=== PATIENT | male | born 1935 | race African-American/Black ===

== ENCOUNTER 2020-09-08 16:53 | Inpatient (IN) | payer MEDICARE, OTHER ==
[~2020-09-08] VITALS: Ht 167.6 cm; Wt 72.6 kg
[2020-09-08] MEDS ORDERED: IV NORMAL SALINE 1000 ML BAG IV ONE (17:30)
[2020-09-08 17:52] LABS: MEAN CORPUSCULAR HEMOGLOBIN 26.2 uug (23.8-33.4); MEAN CORPUSCULAR VOLUME 80.9 fL (73.0-96.2); PLATELET COUNT (AUTO) 173 K/uL (152-348)
[2020-09-08 17:53] LABS: CARBON DIOXIDE 28 mmol/L (21-32); CHLORIDE 104 mmol/L (98-107); CREATININE 1.5 mg/dL (0.6-1.3); GLUCOSE 105 mg/dL (74-106); UREA NITROGEN, BLOOD 15 mg/dL (7-18)
[2020-09-08 17:54] LABS: ETHANOL < 3 MG/DL (0-0)
[2020-09-08 17:59] LABS: ALANINE AMINOTRANSFERASE 18 U/L (16-63); ALKALINE PHOSPHATASE 64 U/L (50-136); ASPARTATE AMINOTRANSFERASE 13 U/L (15-37); BILIRUBIN,DIRECT 0.1 mg/dL (0.0-0.2); BILIRUBIN,TOTAL 0.8 mg/dL (0.2-1.0); TOTAL PROTEIN, SERUM 7.1 g/dL (6.4-8.2)
--- NOTE | 2020-09-08 18:08 | NUR ---
PT IS IN ROOM #1A. DR MARSH EVALUATED THE PT.
[2020-09-08 18:14] LABS: CREATINE KINASE, TOTAL 95 U/L (39-308); PHOSPHOROUS 2.4 mg/dL (2.5-4.9)
[2020-09-08] MEDS ORDERED: LORAZEPAM 2 MG/1 ML VIAL IV ONE (18:15)
[2020-09-08] MEDS ORDERED: LORAZEPAM 2 MG/1 ML VIAL ONE (18:17)
[2020-09-08 18:23] LABS: THYROID STIMULATING HORMONE 1.403 mIU/mL (0.358-3.740)
--- NOTE | 2020-09-08 18:38 | NUR ---
PT STILL UNABLE TO REMEMBER BLOOD PRESSURE MEDICATION HE TAKES.
--- NOTE | 2020-09-08 19:01 | NUR ---
REPORT WAS GIVEN TO [facility] OPERATOR RN.
--- NOTE | 2020-09-08 19:10 | NUR ---
Assumed care for patient at this time. Pt returned from CT scan, in stable condition. Noted with generalized weakness, but verbally responsive and able to express needs. Not in any acute distress. VS taken as recorded. NSR on tele @ 66. Patient is a pending admission, COVID swab done now.
[2020-09-08] MEDS ORDERED: MAGNESIUM HYDROXIDE 30 ML LIQUID UDC PO PRN (19:15)
[2020-09-08] MEDS ORDERED: ACETAMINOPHEN 325 MG TABLET PO PRN (19:15)
[2020-09-08] MEDS ORDERED: IV NS 1000 ML 1,000 ML IV PRN (19:15)
[2020-09-08] MEDS ORDERED: ONDANSETRON 4 MG/2 ML VIAL IV PRN (19:15)
--- NOTE | 2020-09-08 20:28 | NUR ---
Patient is COVID (-). First call to give report.
--- NOTE | 2020-09-08 20:45 | NUR ---
Report given to Deric ORTEGA. Pending rollover paperwork, will bring patient up when admission paperwork ready.
--- NOTE | 2020-09-08 21:20 | NUR ---
Pt requested to go to the bathroom at this time. Pt noted to have unsteady gait when ambulating, RN assisted patient with transfers. Had 1 BM episode prior to leaving ER, with functional incontinence noted. Applied patient gown and removed soiled clothing and placed in belongings bag. Patient then, transported to Room 305 via wheelchair. Warm handoff to Deric ORTEGA.
[2020-09-08] MEDS ORDERED: ATORVASTATIN 20 MG TABLET PO SCH (22:15)
[2020-09-08 22:43] VITALS: BP 128/73
[2020-09-08] MEDS: HEPARIN SODIUM,PORCINE 5,000 UNITS/ML VIAL SQ SCH (22:45)
[2020-09-09] VITALS: BP 139/74
[2020-09-09 02:00] VITALS: BP_SYST 145; BP_SYST 147; BP_SYST 157; BP_DIAS 60; BP_DIAS 65
[2020-09-09 04:06] VITALS: BP 148/78
[2020-09-09 06:50] LABS: HEMATOCRIT 40.9 % (36.7-47.1); MEAN CORPUSCULAR HEMOGLOBIN 26.2 uug (23.8-33.4); MEAN CORPUSCULAR VOLUME 81.7 fL (73.0-96.2); PLATELET COUNT (AUTO) 165 K/uL (152-348)
[2020-09-09 07:14] LABS: CREATININE 0.9 mg/dL (0.6-1.3); MAGNESIUM 1.9 mg/dL (1.8-2.4); PHOSPHOROUS 2.2 mg/dL (2.5-4.9); POTASSIUM 3.7 mmol/L (3.5-5.1)
--- NOTE | 2020-09-09 07:26 | NUR ---
Admitted to room 307; safety maintained; IVF started; endorsed to next RN that pt's concern is that his car was parked at [facility] where he was taken by ambulance.
--- NOTE | 2020-09-09 07:30 | NUR ---
RECEIVED PATIENT ASLEEP WITH EYES CLOSED BUT HE IS EASILY AROUSABLE BUT WILL PROMPTLY FALL ASLEEP HE IS ALERT WHEN AWAKE DENIES PAIN OR DISCOMFORTS AT THIS TIME HE IN IVF OF NORMAL SALINE AT 75 ML/HR VIA HEPLOCK RIGHT AC WITH NO S/S OF INFILTERATION ON SITE.ON ROOM AIR WITH NO SHORTNESS OF BREATH AT THIS TIME CALL LIGHTS AND HIS PERSONAL BELONGINGS ARE WITHIN EASY REACH MADE COMFORTABLE WILL CONTINUE TO OBSERVE AND PROVIDE COMFORT.
[2020-09-09] MEDS: HEPARIN SODIUM,PORCINE 5,000 UNITS/ML VIAL SQ SCH (08:56)
[2020-09-09] MEDS ORDERED: ASPIRIN 81 MG TAB.CHEW PO SCH (09:00)
[2020-09-09 09:10] VITALS: BP 124/73
--- NOTE | 2020-09-09 09:30 | NUR ---
"NOTIFIED THE COLLECTION SYSTEMS TECHNICIAN [facility] AND SHE SPOKE WITH THE PATIENT AND GOTTEN THE MODEL AND THE LICENSE [employer] AND [employer] THE COLLECTION SYSTEMS TECHNICIAN STATED WILL CHECK TO SEE HOW SHE WILL BE ABLE TO RETRIEVE PATIENTS CAR FROM [employer]."
[2020-09-09 10:47] LABS: *BILIRUBIN,URIN NEGATIVE (NEGATIVE); *BLOOD, URINE NEGATIVE (NEGATIVE); *CLARITY,URINE CLEAR (CLEAR); *COLOR,URINE YELLOW (YELLOW); *KETONES,URINE NEGATIVE (NEGATIVE); *UROBILINOGEN,URINE 0.2 E.U./dl (NORMAL); LEUKOCYTE ESTERASE ,URINE NEGATIVE (NEGATIVE); NITRITE, URINE NEGATIVE (NEGATIVE); UGLUCOSE NEGATIVE (NEGATIVE)
[2020-09-09 10:52] LABS: *CREATININE,URINE 100.9 mg/dL (30-125)
[2020-09-09 10:57] LABS: *URINE TOTAL PROTEIN RANDOM < 6.0 mg/dL (<150/24HR)
[2020-09-09 11:31] VITALS: BP 134/77
[2020-09-09] MEDS ORDERED: EYE DROPS (12:12)
[2020-09-09] MEDS ORDERED: HYDROCHLOROTHIAZIDE (12:12)
--- NOTE | 2020-09-09 14:15 | NUR ---
DISCHARGE PLANNING SEEN BY TRISHA JAUREGUI DNP WITH ORDERS TO DISCHARGE PATIENT HOME TODAY PATIENT STATED THAT HIS DAUGHTER FIORELLA WILL PICK HIM UP.
--- NOTE | 2020-09-09 15:20 | NUR ---
PATIENT DISCHARGED PICKED UP BY HIS DAUGHTER JOHNNIE IN SATISFACTORY CONDITION WITH DISCHARGE INSTRUCTION AND PATIENT INSTRUCTED TO CONTINUE TO HYDRATE HIMSELF AND FOLLOW UP APPOINTMENT WITH HIS PRIMARY DOCTOR AND INQUIRE FROM HIM IF HE COULD SWITCH HIS HYDROCHLOROTHIAZIDE TO AMLODIPINE AND HE EXPRESSED UNDERSTANDING.
[2020-09-09] MEDS ORDERED: NEUTRA PHOS PACKET PO ONE (15:30)
== END 2020-09-09 15:20 | disposition home or self-care (01) | DRG 640 ==
LOC: ER 17:06 → TELE3 21:04
PROVIDERS: ADMIT Nurse Practitioner Acute Care; ATTEND Nurse Practitioner Acute Care
DX: E86.0 Dehydration (principal); N17.0 Acute kidney failure with tubular necrosis; E44.1 Mild protein-calorie malnutrition; R55 Syncope and collapse; Z86.73 Personal history of transient ischemic attack (TIA), and cerebral infarction without residual deficits; I10 Essential (primary) hypertension; H40.9 Unspecified glaucoma; E83.39 Other disorders of phosphorus metabolism
CPT/HCPCS: 36415; 70030-TC; 70450; 71045; 83735; 84100; 84156; 84300; 84443; 85025; 85730; 93005; 97161; A4663; G0378; G0480; J1644; J2060